=== PATIENT | female | born 1975 | race Caucasian/White ===

== ENCOUNTER 2019-09-09 19:18 | Emergency (ER) | payer OTHER, BC ==
[~2019-09-09] VITALS: Ht 170 cm; Wt 81.0 kg
--- OUTSIDE RECORDS SUMMARY | 2019-09-09 19:24 | XMS REPORT | Summary of Care ---
Author Author Shania Wayne M.D. Organization Unknown Address [address], [place] [id number] Phone Unavailable Care Team Providers Care Rn Anesthesiology Name Role Phone Dwayne Wayne M.D. Unavailable Unavailable Gretchen Fowler Unavailable Unavailable Unavailable Unavailable Reason for Visit * Health Issues Reviewed: * Myasthenia gravis Functional Status Name Dates Details Functional status health issues are not documented Status: Name Dates Details Cognitive status health issues are not d ocumented Status: Problems Name Dates Details Myasthenia gravis (358.00, G70.00) Status: Active Medications Name Dates Details Pyridostigmine [place] 60 MG Oral Tablet TAKE ONE TABLET BY MOUTH FOUR TIMES A DAY ABSOLUTELY MUST MAKE APPT Quantity: 136 Segundo Wayne M.D. Start : 24-Apr-2018 Active Diclofenac Sodium 50 MG Oral Tablet Delayed Release * Refills: 0 * Start : 10-Jul-2010 Active Multivitamins TABS * Refills: 0 * Start : 10-Jul-2010 Active Medications Administered Name Dates Details Medication Administration not documented Allergies and Adverse Reactions Name Dates Details Penicillins (Allergy) Status: Active Procedures Procedure Dates Details Procedures not documented Immunization Name Dates Details Immunizations not documented Social History Name Dates Details - Status: Name Dates Details Never smoker Vital Signs Date Test Result Details [id number] BP Systolic 116 mm[Hg] Status: Comments: Lo cation: RUE; Position: Sitting BP Diastolic 70 mm[Hg] Status: Comments: Lo cation: RUE; Position: Sitting Weight 196 lb Status: Heart Rate 88 /min Status: Comments: Qu ality: Regular O2 SAT 98 % Status: Results Date Description Value Details Results not documented Plan of Care Name Dates Details Planned Observations Planned Goals not documented Planned Encounters Appointment; Segundo Wayne M.D. On: 01-Oct-2019 14:00 Instructions Name Dates Details Instructions not documented Encounters Appointment; Segundo Wayne M.D. Encounter Diagnosis: Myasthenia gravis On: 25-Sep-2018 15:30
--- OUTSIDE RECORDS SUMMARY | 2019-09-09 19:24 | XMS REPORT | Continuity of Care Document ---
Author Author [facility] Organization [facility] Address [address] [place] [address] Phone Care Team Providers Care Watch Crystal Grinder Name Role Phone Dwayne Fowler PCP Rosemary Warren Rndphys Unavailable Dwayne Valladares Rndphys Unavailable Dwayne Fowler Attphys Allergies, Adverse Reactions, Alerts Allergen Type Severity Reaction Last Updated Verified Status Penicillins Allergy Unkn own February 21, 2019 Ye s Active amoxicillin Allergy February 21, 2019 Yes Active tetracycline Adverse Reaction Mild NAUSEA February 21, 2019 Yes Active Medications Medication Status Dose Units Route Sig Qty Days Start Date End Date Instructions Pyridostigmine [place] Discontinued 60 MG Oral 5 TIMES A DAY 0 September 19, 2009 10:26 am January 27, 2017 10:40am Acetaminophen Discontinued 500 MG Oral Four times daily 0 May 26, 2016 6:5 7pm May 29, 2016 4:27pm Famotidine Discontinued 20 MG Oral Twice a Day 10 May 29, 2016 4:27pm January 27, 2017 10:40am Ondansetron Discontinued 4 MG Oral Q4H 10 May 29, 2016 4:27pm January 27, 2017 10:40am Oseltamivir Cap Discontinued 75 MG Oral Daily 7 7 April 27, 2018 6:22pm May 04, 2018 12:02am Diclofenac Potassium Discontinued 50 MG Oral 3 times a day 60 September 20, 2018 1:0 2pm October 12, 2018 2:29pm Diclofenac Potassium Active 25 MG Oral 3 times a day February 21, 2019 5:46pm Multivitamin With Iron Active 1 TAB Oral Daily February 21, 2019 5:46pm Pyridostigmine [place] 60 MG Oral 5 times daily February 21, 2019 5:46pm Diclofenac Potassium Discontinued 50 MG Oral 3 times a day 60 October 12, 2018 2: 29pm December 15, 2018 10:47am Naproxen Sodium Discontinued 220 MG Oral Daily April 28, 2017 5:21pm September 19, 2018 8:48am Oseltamivir Cap Discontinued 75 MG Oral Twice a Day 10 5 April 28, 2017 5:40pm May 03, 2017 12:02am Problems Active Problems Medical Problem Onset Date Status Arthritis of sacroiliac joint of both sides Active Arthritis of both knees Active Patellofemoral arthritis of right knee Active Myasthenia gravis Acti ve Degenerative disc disease, lumbar Active Inactive/Resolved Problems Medical Problem Onset Date Status Needlestick injury accident with exposure to body flui d Resolved Procedures No procedure information available. Relevant Diagnostic Tests and/or Laboratory Data Laboratory Results Test Date/Time Result Interpretation Reference Range Result Comment Performing Site Alanine Aminotransferase (ALT/SGPT) February 21, 2019 6:48pm 44 U/L 1-35 Main Lab, [address] [place] [address] HIV Antigen/Antibody Combo Qual Dece mber 2018 6:48pm Negative NEGATIVE [facility], [address] [place] [address] Chemistry Comments February 21 6:48pm Performed at [facility] Test performed at: [facility], [address] [place] [address]. Moisture Tester Ro Granados MD. CLIA# [id number]. [facility], [address] [place] [address] Health Concerns Health Concerns may be documented in an alternate section. 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 , 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 Assessments No Assessments Information Available Family History Relationship Condition A ge at Onset Recorded Date/Time father Glioblastoma Unkn own grandmother Unknown Hypertension Unknown Unknown Cerebrovascular accident (CVA) Unknown grandfather Unknown Hypertension Unknown Unknown grandfather Unknown grandmother Unknown Functional Status No Functional Status information available Goals Acute Goals Physician Care Plan Problem: Needlestick with body fluid exposure Goal: Follow up with primary care provider Instructions: Take medications and follow care plan as discussed/written Immunizations No Immunization Information Available Mental Status No Mental Status Information Available Medical Equipment No Medical Equipment Information available Insurance Providers Guarantor Shania Barone Address [address] [facility] [address] Contact Info. Home Phone: Payer Policy Id Coverage Id Subscriber's Name Subscriber Id Effective Date Expiration Date [facility] [id number] Lj Carter Lizabeth [id number] Self Pay Self N/A Workers Compensation Shania Barone Plan of Treatment Future Tests Future scheduled test information is unavailable Pending Tests Pending diagnostic test information is unavailable Future Visits Future appointment information is unavailable Referrals to Other Providers Reason for Referral Referral Start Date Provider Provider Conta ct Information Provider Address G70.00 - Myasthenia gravis without (acute) exacerbation Gretchen Fowler Work Phone: [phone] [facility] [address] Future Procedures Future procedure information is unavailable Future Medications Future medication information is unavailable Patient Instructions Body Substance Exposure (ED) Social History Smoking Status Status Date of Observation Unknown if ever smoked February 7:44pm Observation Status Observation Response Johan e of Response alcohol intake current O ct2018 12:43pm alcohol intake frequency holidays/sp ecial occasions only December 15, 2018 12:43pm substance use type does not use December 15, 2018 12:43pm Assigned Sex Female Vital Signs Vital Reading Result Ref erence Range Collection Date/Time Height 67 [in_i] February 21, 2019 5:48pm Weight 86.80 kg February 21, 2019 5:48pm Body Temperature 98.4 [degF] 96.8-100.4 February 21, 2019 5:40pm Heart Rate 75 /min 60-100 February 21, 2019 8:45pm Respiratory rate 16 /min 10-24 February 21, 2019 8:45pm Oxygen saturation by Pulse oximetry 98 % 90- 100 February 21, 2019 8:45pm BP Systolic 111 mm[Hg] - 139 February 21, 2019 8:45pm BP Diastolic 59 mm[Hg] - 89 February 21, 2019 8:45pm Hospital Discharge Instructions Additional Instructions Follow as needed with your PCP.
--- OUTSIDE RECORDS SUMMARY | 2019-09-09 19:24 | XMS REPORT ---
Author Author Shania Hoang Organization [employer] Address Unknown Phone Unavailable Care Team Providers Care Instructional Aide Name Role Phone Steven Hoang Unavailable Allergies No Known Allergies Problems Problem Type Condition Code Onset Dates Condition Statu s Problem Encounter for routine checking of intrau terine contraceptive device Z30.431 Active Medications Medication Code System Code Instructions Start Date End Date Status Dosage Terazol 7 [facility] [address]-11 0.4 % Vaginal Once a day July 13July 21, 2015 1 application at bedtime Results No Known Results Summary Purpose [employer] Submission
--- OUTSIDE RECORDS SUMMARY | 2019-09-09 19:24 | XMS REPORT | Continuity of Care Document ---
Author Author [facility] Organization [facility] Address [address] [place] [address] Phone Care Team Providers Care Credit Balance Specialist Name Role Phone Dwayne Fowler PCP Rosemary Warren Rndphys Unavailable Dwayne Valladares Rndphys Unavailable Allergies, Adverse Reactions, Alerts Allergen Type Severity Reaction Last Updated Verified Status Penicillins Allergy Unkn own February 21, 2019 Ye s Active amoxicillin Allergy February 21, 2019 Yes Active tetracycline Adverse Reaction Mild NAUSEA February 21, 2019 Yes Active Medications Medication Status Dose Units Route Sig Qty Days Start Date End Date Instructions Pyridostigmine [place] Discontinued 60 MG Oral 5 TIMES A [...] 2019 6:48pm 44 U/L 1-35 Main Lab, [address] [place] [address] HIV Antigen/Antibody Combo Qual Dece mber 2018 6:48pm Negative NEGATIVE [facility], [address] [place] [address] Chemistry Comments February 21 6:48pm Performed at [facility] Test performed at: [facility], [address] [place] [address]. Cane Splicer Ro Granados MD. CLIA# [id number]. [facility], [address] [place] [address] Health Concerns Health Concerns may be documented in an alternate section. Chief Complaint and Reason for Visit Chief Complaint Finger stick at work Encounters Encounter Location(s) Ar rival/Admit Date Discharge/Depart Date Provider(s) Departed Physician/Provider Office Visit [facility] December 15, 2018 10:32am December 15, 2018 11:39am Gretchen Fowler APRN Departed Emergency [facility] nter-Emergency Department February 21, 2019 5:18pm February 21, 2019 8:45pm null Assessments No Assessments Information Available Family History [...] Providers Guarantor Shania Barone Address [address] [facility] [address] Contact Info. Home Phone: Payer Policy Id Coverage Id Subscriber's Name Subscriber Id Effective Date Expiration Date [facility] [id number] Lj Carter Gallitoranjana [id number] Self Pay Self N/A Workers Compensation Shania Barone Plan of Treatment Future Tests Future scheduled test information is unavailable Pending Tests Pending diagnostic test information is unavailable Future Visits Future appointment information is unavailable Referrals to Other Providers Reason for Referral Referral Start Date Provider Provider Conta ct Information Provider Address Gretchen Fowler Work Phone: [address] [facility] [address] Future Procedures Future procedure information is unavailable Future Medications Future medication information is unavailable Patient Instructions Body Substance Exposure (ED) Social History Smoking Status Status Date of Observation Unknown if ever smoked February 7:44pm Observation Status Observation Response Johan e of Response alcohol intake current O ctober 2018 12:43pm alcohol intake frequency holidays/sp ecial occasions [...] 8:45pm BP Diastolic 59 mm[Hg] - 89 Patricio 11th, 2019 8:45pm Hospital Discharge Instructions Additional Instructions Follow as needed with your PCP.
--- OUTSIDE RECORDS SUMMARY | 2019-09-09 19:24 | XMS REPORT | Continuity of Care Document ---
Author Author [facility] Organization [facility] Address [address] [place] [address] Phone Care Team Providers Care Employee Benefits Coordinator Name Role Phone Dwayne Fowler PCP Rosemary [...] Days Start Date End Date Instructions Pyridostigmine [place] Discontinued 60 MG Oral 5 TIMES A [...] 2019 6:48pm 44 U/L 1-35 Main Lab, [address] [place] [address] HIV Antigen/Antibody Combo Qual Dece mber 2018 6:48pm Negative NEGATIVE [facility], [address] [place] [address] Chemistry Comments February 21 6:48pm Performed at [facility] Test performed at: [facility], [address] [place] [address]. Maintenance Representative Ro Granados MD. CLIA# [id number]. [facility], [address] [place] [address] Health Concerns Health Concerns may be documented in an alternate section. Chief Complaint and Reason for Visit Chief Complaint Finger stick at work Encounters Encounter Location(s) Ar rival/Admit Date Discharge/Depart Date Provider(s) Departed Physician/Provider Office Visit [facility] December 15, 2018 10:32am December 15, 2018 11:39am Gretchen Fowler APRN Departed Emergency [facility] Ambulatory-Emergency Department February 21, 2019 5:18pm February 21, 2019 8:45pm null Registered Inpatient [facility] Ambulatory-Non Visit AMB Hospitalist March 05, 2019 8:42am Gretchen A Regier , MANAGER GENERAL Assessments No Assessments Information Available Family History [...] Providers Guarantor Shania Barone Address [address] [facility] [address] Contact Info. Home Phone: Payer Policy Id Coverage Id Subscriber's Name Subscriber Id Effective Date Expiration Date [facility] [id number] Lj Carter Lizabeth [id number] Self Pay Self N/A Workers Compensation Shania [...] exacerbation Gretchen Fowler Work Phone: [address] [facility] [address] Future Procedures Future procedure information is unavailable [...]
--- OUTSIDE RECORDS SUMMARY | 2019-09-09 19:24 | XMS REPORT ---
Author Author Shania Hoang Organization [facility] Address [address] [place], [place] [address] Care Team Providers Care Lining Inserter Name Role Phone Steven Hoang Unavailable PROBLEMS Type Condition ICD9-CM Code [id number] Code Onset Dates Condition S tatus SNOMED Code Problem Encounter for routine checking of intrauterine c ontraceptive device Z30.431 Active [id number] Assessment Encounter for routine checking of intrau terine contraceptive device Z30.431 July, Active [id number] ALLERGIES Substance Reaction Event Type Date Status Tetracycline HCl stomach upset Drug Allergy July, Active Penicillin V Potassium hives Drug Allergy July, Activ e Hydrocodone-Acetaminophen itching Drug Allergy July, Ac tive Erythromycin stomach upset Drug Allergy July, Active SOCIAL HISTORY No smoking Hx information available PLAN OF CARE VITAL SIGNS Height 5 ft 6 in in 2015-07-25 Weight 185 lbs 2015-07-25 BMI 29.86 kg/m2 2015-07-25 Blood pressure systolic 100 mm Hg 2015-07-25 Blood pressure diastolic 62 mm Hg 2015-07-25 MEDICATIONS Medication Instructions Dosage Frequency Start Date End Date Duration S tatus Diclofenac Sodium 100 MG Orally Once a day 1 tablet 24h Active Mirena 20 MCG/24HR Intrauterine every 5 years as directed Jun, as needed Active Mestinon 60 MG Orally five times a day as needed 1 Tablet Active Tylenol Extra Strength 500 MG Orally every 6 hrs 1 tablet as needed 6h Active Multivitamins Orally once a day 1 tablet 24h Active Ibuprofen 200 MG Orally every 6 hrs 4 tablet as needed 6h Active RESULTS No Results PROCEDURES Procedure Date Ordered Related Diagnosis Body Site Office Visit, Est Pt., Level 2 July 25, 2015 IMMUNIZATIONS No Known Immunizations
--- OUTSIDE RECORDS SUMMARY | 2019-09-09 19:24 | XMS REPORT | Continuity of Care Document ---
Author Author [facility] Organization [facility] Address [address] [place] [address] Phone Care Team Providers Care Meter/Relay Technician Name Role Phone Sissy Velasquez Attphys Dwayne Fowler Rndphys Allergies, Adverse Reactions, Alerts Allergen Type Severity Reaction Last Updated Verified Status Penicillins Allergy Unkn own May 04, 2019 Ye s Active amoxicillin Allergy May 04, 2019 Yes Active tetracycline Adverse Reaction Mild NAUSEA May 04, 2019 Yes Active Medications Medication Status Dose Units Route Sig Qty Days Start Date End Date Instructions Pyridostigmine [place] Discontinued 60 MG Oral 5 TIMES A [...] 2018 1:0 2pm October 12, 2018 2:29pm Pyridostigmine [place] Discontinued 60 MG Oral 3 times a day March 08, 2019 2:43pm March 09, 2019 4:31pm Diclofenac Potassium Active 25 MG Oral 3 times a day 90 March 08, 2019 2:44pm Pyridostigmine [place] Discontinued 60 MG Oral 3 times a day 90 March 09, 2019 4:31pm May 04, 2019 10:32am Diclofenac Potassium Discontinued 25 MG Oral 3 times a day February 21, 2019 5:46pm March 08, 2019 2:45pm Multivitamin With Iron Active 1 TAB Oral Daily February 21, 2019 5:46pm Pyridostigmine Discontinued 60 MG Oral 5 times daily February 21, 2019 5:46pm March 08, 2019 2:44pm Diclofenac Potassium Discontinued 50 MG Oral 3 times a day 60 October 12, 2018 2: 29pm December 15, 2018 10:47am Naproxen Sodium Discontinued 220 MG Oral Daily April 28, 2017 5:21pm September 19, 2018 8:48am Oseltamivir Cap Discontinued 75 MG Oral Twice a Day 10 April 28, 2017 5:40pm May 03, 2017 12:02am Pyridostigmine [place] Discontinued 60 MG Oral 5 times daily May 04, 2019 10:32am May 04, 2019 11:00am 3-5 x pe r day Pyridostigmine [place] Active 60 MG Oral Six times a day 180 May 04 0 11:00am Problems Active Problems Medical Problem Onset Date [...] available. Relevant Diagnostic Tests and/or Laboratory Data No known relevant diagnostic tests and/or laboratory data. Health Concerns Health Concerns may be documented in an alternate section. Chief Complaint and Reason for Visit Chief Complaint Myasthenia gravis Encounters Encounter Location(s) Ar rival/Admit Date Discharge/Depart Date Provider(s) Departed Emergency [facility] Ambulatory-Emergency Department February 21, 2019 5:18pm February 21, 2019 8:45pm null Departed Physician/Provider Office Visit [facility] May 04, 2019 10:22am May 04, 2019 11:59pm Sissy Velasquez MD Assessments No Assessments Information Available Family History Relationship Condition A ge at Onset Recorded Date/Time father Glioblastoma Unkn own grandmother Unknown Hypertension Unknown Unknown Cerebrovascular accident (CVA) Unknown grandfather Unknown Hypertension Unknown Unknown grandfather Unknown grandmother Unknown Functional Status No Functional Status information available Goals Goals may be documented in an alternate section. Immunizations No Immunization Information Available Mental Status No Mental Status Information Available Medical Equipment No Medical Equipment Information available Insurance Providers Guarantor Shania Barone Address [address] [facility] [address] Contact Info. Home Phone: Payer Policy Id Coverage Id Subscriber's Name Subscriber Id Effective Date Expiration Date [facility] [id number] Lj Carter Gallitoranjana [id number] Self Pay Self N/A Workers Compensation Shania Barone Plan of Treatment Patients presents with recurrent symptoms of double vision, ptosis, left more than right, fatigue, and arm weakness associated with antibody positive Myasthenia gravis. This has b een partially managed with Mestinon and she is reluctant trying steroid or any other immune th erapy at present time? She had a thymectomy which helped her symptoms for few months only. She also has symptoms of right CTS. Plan: 1- increase Mestinon to 60MG po up to 6 times a day for myasthenia symptoms. 2- consider adding low dosage of prednisone 10MG po qd for symptoms exacerbation 3- consider Imuran or Soliris if having worse progressing disease. 4- consider IVIG for Myasthenia crisis 5- consider having an EMG NCT if having worse right hand numbness and weakness. Future Tests Future scheduled test information is unavailable Pending Tests Pending diagnostic test information is unavailable Future Visits Future appointment information is unavailable Referrals to Other Providers Referral information is unavailable Future Procedures Future procedure information is unavailable Future Medications Future medication information is unavailable Patient Instructions Patient instructions are unavailable Social History Smoking Status Status Date of Observation Unknown if ever smoked April 11:18am Observation Status Observation Response Johan e of Response alcohol intake current F ebruary 2019 11:18am alcohol intake frequency holidays/sp ecial occasions only May 04, 2019 11:18am substance use type does not use May 04, 2019 11:18am Assigned Sex Female Vital Signs Vital Reading Result Ref erence Range Collection Date/Time Height 67 [in_i] May 04, 2019 10:32am Weight 88.45 kg May 04, 2019 10:32am Heart Rate 72 /min 60-100 May 04, 2019 10:32am BP Systolic 117 mm[Hg] - 139 May 04, 2019 10:32am BP Diastolic 70 mm[Hg] - 89 May 04, 2019 10:32am BMI (Body Mass Index) 30.5 kg/m2 May 04, 2019 10:32am
--- OUTSIDE RECORDS SUMMARY | 2019-09-09 19:24 | XMS REPORT | Continuity of Care Document ---
Author Author [facility] Organization [facility] Address [address] [place] [address] Phone Care Team Providers Care Electronic Parts Salesperson Name Role Phone Dwayne Fowler PCP Rosemary [...] Days Start Date End Date Instructions Pyridostigmine [place] Discontinued 60 MG Oral 5 TIMES A [...] 6:48pm 44 U/L 1-35 Main Lab, [address] [place] [address] HIV Antigen/Antibody Combo Qual Dece mber 2018 6:48pm Negative NEGATIVE [facility], [address] [place] [address] Chemistry Comments February 21 6:48pm Performed at [facility] lab Test performed at: [facility], [address] [place] [address]. Sow Farm Barn Technician Ro Granados MD. CLIA# [id number]. [facility], [address] [place] [address] Health Concerns Health Concerns may be documented in an alternate section. Chief Complaint and Reason for Visit Chief Complaint Finger stick at work Encounters Encounter Location(s) Ar rival/Admit Date Discharge/Depart Date Provider(s) Departed Physician/Provider Office Visit [facility] December 15, 2018 10:32am December 15, 2018 11:39am Gretchen Fowler APRN Departed Emergency [facility] nter-Emergency Department February 21, 2019 5:18pm February [...] Providers Guarantor Shania Barone Address [address] [facility] [address] Contact Info. Home Phone: Payer Policy Id Coverage Id Subscriber's Name Subscriber Id Effective Date Expiration Date [facility] [id number] Lj Carter Gallitoranjana [id number] Self Pay Self N/A Workers Compensation Shania Barone Plan of Treatment Future Tests Future scheduled test information is unavailable Pending Tests Pending diagnostic test information is unavailable Future Visits Future appointment information is unavailable Referrals to Other Providers Reason for Referral Referral Start Date Provider Provider Conta ct Information Provider Address Gretchen Fowler Work Phone: [phone] [facility] [address] Future Procedures Future procedure information is unavailable [...]
--- OUTSIDE RECORDS SUMMARY | 2019-09-09 19:24 | XMS REPORT ---
Author Author Shania Hoang Organization [facility] Address [address], [place] [address] Care Team Providers Care Food Services Coordinator Name Role Phone Steven Hoang Unavailable PROBLEMS Type Condition ICD9-CM Code DKE48-IA Code Onset Dates Condition S tatus SNOMED Code Problem Encounter for routine checking of intrauterine c ontraceptive device Z30.431 Active [id number] ALLERGIES No Information ENCOUNTERS Encounter Location Date Diagnosis [address] [id number] Apr, [address] [id number] July, Encounter for routine checking of intrauterine contraceptive device Z30.[address] [id number] Jun, [address] [id number] Jun, Encounter for gynecological examination without abnormal finding Z01.419 ; Encounter for removal and reinsertion of intrauterine contraceptive device Z30.433 ; Encounter for routine checking of intrauterine contraceptive device Z30.431 ; Encounter for screening mammogram for malignant neoplasm of breast Z12.31 and Encounter for screening for malignant neoplasm of other sites Z12.[address] [id number] Apr, Well Woman Exam V72.31 ; IUS/IUD Management V25.42 and Mammogram, screening V76.[address] [id number] Mar, [facility] Woman Exam V72.31 ; IUS/IUD Management V25.42 ; Pelvic pain 625.9 and Dyspareunia [address] [id number] July, [address] [id number] [facility] [id number] Mar, [facility] [id number] July, Well Woman Exam V72.31 ; IUS/IUD Management V25.42 and Postop V67.[address] [id number] July, [facility] [id number] Jun, Pelvic pain 625.9 and Abdominal pain, right lower quadrant 789.[address] [id number] Jun, [facility] Rodrigo[address] [id number] Jun, Pelvic pain 625.[address] [id number] Jun, [facility] Rodrigo[address] [id number] Jun, Pelvic pain 625.[address] [id number] Jun, [facility] Rodrigo[address] [id number] Jun, Pelvic pain 625.[address] [id number] Jun, [address] [id number] Jun, IMMUNIZATIONS No Known Immunizations SOCIAL HISTORY Never Assessed REASON FOR VISIT No-Show/WWE PLAN OF CARE VITAL SIGNS MEDICATIONS Unknown Medications RESULTS No Results PROCEDURES No Known procedures INSTRUCTIONS MEDICATIONS ADMINISTERED No Known Medications MEDICAL (GENERAL) HISTORY Type Description Date Medical History myasthenia gravis Surgical History cryotherapy Surgical History tab 1990 Surgical History arthroscopic knee surgery, right knee x2 , left knee x1 2009 Surgical History cholecystectomy 1999 Surgical History laparoscopy, operative w/ fu lguration of lesions - Rt paratubal cyst by Dr. Hoang 07/09/2011 Surgical History laparoscopic appendectomy by Dr. Vicente 07/09/2011
--- OUTSIDE RECORDS SUMMARY | 2019-09-09 19:24 | XMS REPORT | Continuity of Care Document ---
Author Author [facility] Organization [facility] Address [address] [place] [address] Phone Care Team Providers Care Patient Care Representative Name Role Phone Sissy Velasquez Attphys Dwayne Fowler Rndphys Allergies, Adverse Reactions, Alerts Allergen Type Severity Reaction Last Updated Verified Status Penicillins Allergy Unkn own May 04, 2019 Ye s Active amoxicillin Allergy May 04, 2019 Yes Active tetracycline Adverse Reaction Mild NAUSEA May 04, 2019 Yes Active Medications Medication Status Dose Units Route Sig Qty Days Start Date End Date Instructions Pyridostigmine [place] Discontinued 60 MG Oral 5 TIMES A [...] 1:0 2pm October 12, 2018 2:29pm Pyridostigmine [place] Discontinued 60 MG Oral 3 times a day March 08, 2019 2:43pm March 09, 2019 4:31pm Diclofenac Potassium Active 25 MG Oral 3 times a day 90 March 08, 2019 2:44pm Pyridostigmine [place] Discontinued 60 MG Oral 3 times a [...] 2017 5:40pm May 03, 2017 12:02am Pyridostigmine [place] Discontinued 60 MG Oral 5 times daily May 04, 2019 10:32am May 04, 2019 11:00am 3-5 x pe r day Pyridostigmine [place] Active 60 MG Oral Six times a [...] rival/Admit Date Discharge/Depart Date Provider(s) Departed Emergency [facility] Ambulatory[facility]Emergency Department February 21, 2019 5:18pm February 21, 2019 8:45pm null Departed Physician/Provider Office Visit [facility] May 04, 2019 10:22am [...] Providers Guarantor Shania Barone Address [address] [facility] [address] Contact Info. Home Phone: Payer Policy Id Coverage Id Subscriber's Name Subscriber Id Effective Date Expiration Date [facility] [id number] Lj Carter Gallitoranjana [id number] Self Pay Self N/A Workers Compensation Shania [...]
--- OUTSIDE RECORDS SUMMARY | 2019-09-09 19:24 | XMS REPORT | Continuity of Care Document ---
Author Author [facility] Organization [facility] Address [address] [place] [address] Phone Care Team Providers Care Child Welfare Caseworker Name Role Phone Dwayne Fowler PCP Rosemary [...] Days Start Date End Date Instructions Pyridostigmine [place] Discontinued 60 MG Oral 5 TIMES A [...] 2019 6:48pm 44 U/L 1-35 Main Lab, [address] [place] [address] HIV Antigen/Antibody Combo Qual Dece mber 2018 6:48pm Negative NEGATIVE [facility], [address] [place] [address] Chemistry Comments February 21 6:48pm Performed at [facility] Test performed at: [facility], [address] [place] [address]. Coding Technician Ro Granados MD. CLIA# [id number]. [facility], [address] [place] [address] Health Concerns Health Concerns may be documented in an alternate section. Chief Complaint and Reason for Visit Chief Complaint Finger stick at work Encounters Encounter Location(s) Ar rival/Admit Date Discharge/Depart Date Provider(s) Departed Physician/Provider Office Visit [facility] December 15, 2018 10:32am December 15, 2018 11:39am Gretchen Fowler APRN Departed Emergency [facility] nter-Emergency Department February 21, 2019 5:18pm February [...] Providers Guarantor Shania Barone Address [address] [facility] [address] Contact Info. Home Phone: Payer Policy Id Coverage Id Subscriber's Name Subscriber Id Effective Date Expiration Date [facility] [id number] Lj Carter Gallitornajana [id number] Self Pay Self N/A Workers Compensation Shania Barone Plan of Treatment Future Tests Future scheduled test information is unavailable Pending Tests Pending diagnostic test information is unavailable Future Visits Future appointment information is unavailable Referrals to Other Providers Reason for Referral Referral Start Date Provider Provider Conta ct Information Provider Address Gretchen Fowler Work Phone: [address] [facility] [address] Future Procedures Future procedure information is unavailable [...]
--- OUTSIDE RECORDS SUMMARY | 2019-09-09 19:25 | XMS REPORT | Continuity of Care Document ---
Author Author [facility] Organization [facility] Address [address] [place] [address] Phone Care Team Providers Care Tomato Grader Name Role Phone Dwayne Fowler PCP Rosemary [...] Days Start Date End Date Instructions Pyridostigmine [place] Discontinued 60 MG Oral 5 TIMES A [...] 6:48pm 44 U/L 1-35 Main Lab, [address] [place] [address] HIV Antigen/Antibody Combo Qual Dece mber 2018 6:48pm Negative NEGATIVE [facility], [address] [place] [address] Chemistry Comments February 21 6:48pm Performed at [facility] lab Test performed at: Laboratory, [address] [place] [address]. Membership Solicitor Ro Granados MD. CLIA# [id number]. [facility], [address] [place] [address] Health Concerns Health Concerns may be documented in an alternate section. Chief Complaint and Reason for Visit Chief Complaint Finger stick at work Encounters Encounter Location(s) Ar rival/Admit Date Discharge/Depart Date Provider(s) Departed Physician/Provider Office Visit -[facility] December 15, 2018 10:32am December 15, 2018 11:39am Gretchen Fowler APRN Departed Emergency [facility] nter-Emergency Department February 21, 2019 5:18pm [...] Providers Guarantor Shania Barone Address [address] [facility] [address] Contact Info. Home Phone: Payer Policy Id Coverage Id Subscriber's Name Subscriber Id Effective Date Expiration Date [facility] [id number] Lj Carter Gallitoranjana [id number] Self Pay Self N/A Workers Compensation Shania Barone Plan of Treatment Future Tests Future scheduled test information is unavailable Pending Tests Pending diagnostic test information is unavailable Future Visits Future appointment information is unavailable Referrals to Other Providers Reason for Referral Referral Start Date Provider Provider Conta ct Information Provider Address Gretchen Fowler Work Phone: [address] [facility] [address] Future Procedures Future procedure information is unavailable [...]
--- OUTSIDE RECORDS SUMMARY | 2019-09-09 19:25 | XMS REPORT | Continuity of Care Document ---
Author Author [facility] Organization [facility] Address [address] [place] [address] Phone Care Team Providers Care Rug Inspector Name Role Phone Raul Pringle Attphys Raul Pringle Rndphys Dwayne Fowler PCP Allergies, Adverse Reactions, Alerts Allergen Type Severity Reaction Last Updated Verified Status Penicillins Allergy Unknown Yes Active tetracycline Adverse Reaction Mild NAUSEA Yes Active Medications Medication Status Dose Units Route Sig Qty Days Start Date End Date Instructions Pyridostigmine [place] Active 60 MG Oral 5 TIMES A DAY 0 January 27, 2017 10:40am Diclofenac Potassium Active 50 MG Oral 3 times a day 60 October 12, 2018 2:29pm Multivit With Calcium,Iron,Min Active 1 TAB Oral Daily April 28, 2017 5:21pm Problems Active Problems Medical Problem Onset Date Status 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 Relevant Diagnostic Tests and/or Laboratory Data Laboratory Results Test Date/Time Result Interpretation Reference Range Result Co mment Performing Site Blood Urea Nitrogen October 11, 2018 9:43am 15.0 MG/DL 7-17 Main Lab, [address] [place] [address] Lactate Dehydrogenase October 11, 2018 9:43am 389 U/L 31 3-618 Test performed at: [facility], [address] [place] [address]. Chauffeur Airport Limousine Ro Granados MD. DAVIDIA# [id number]. Main Lab, [address] [place] [address] Health Concerns No known health concerns documented Chief Complaint and Reason for Visit Chief Complaint Re-ck meds Encounters Encounter Location(s) Arrival/Admit Date Discharge/Depart Date Provider(s) Departed Physician/Provider Office Visit [facility] October 11, 2018 9:10am October 11, 2018 9:43am Sabas Pringle MD Assessments No Assessments Information Available Family History Relationship Condition Age at Onset Recorded Date/Ti me father Glioblastoma Unknown grandmother Unknown Hypertension Unknown Unknown Cerebrovascular accident (CVA) Unknown grandfather Unknown Hypertension Unknown Unknown grandfather Unknown grandmother Unknown Functional Status No Functional Status information available Goals No Goals Information Available Immunizations No Immunization Information Available Mental Status No Mental Status Information Available Medical Equipment No Medical Equipment Information available Insurance Providers Guarantor Shania Barone Address [address] [facility] [address] Contact Info. Home Phone: Payer Policy Id Coverage Id Subscriber's Name Subscriber Id Effect phong Date Expiration Date [facility] [id number] Self Pay Self N/A Plan of Treatment check lab to see if can continue diclofenac clinic visit with Dr Moran Future Tests Future scheduled test information is unavailable Pending Tests Pending diagnostic test information is unavailable Future Visits Future appointment information is unavailable Referrals to Other Providers Referral information is unavailable Future Procedures Future procedure information is unavailable Future Medications Future medication information is unavailable Patient Instructions Patient instructions are unavailable Social History Assigned Sex Female Vital Signs Vital Reading Result Collection Date/Time Height 67 [in_i] October 11, 2018 9:12 am
--- OUTSIDE RECORDS SUMMARY | 2019-09-09 19:25 | XMS REPORT | Continuity of Care Document ---
Author Author [facility] Organization [facility] Address [address] [place] [address] Phone Care Team Providers Care Mail Handler Name Role Phone Tera Moran Attphys Dwayne Fowler PCP Tera Delacruz Rndphys Allergies, Adverse Reactions, Alerts Allergen Type Severity Reaction Last Updated Verified Status Penicillins Allergy Unknown Yes Active tetracycline Adverse Reaction Mild NAUSEA Yes Active Medications Medication Status Dose Units Route Sig Qty Days Start Date End Date Instructions Pyridostigmine [place] Active 60 MG Oral 5 TIMES A [...] diagnostic tests and/or laboratory data. Health Concerns No known health concerns documented Chief Complaint and Reason for Visit Chief Complaint Mario Alberto Knee Encounters Encounter Location(s) Arrival/Admit Date Discharge/Depart Date Provider(s) Departed Physician/Provider Office Visit [facility] November 06, 2018 10:22am November 06, 2018 11:59pm Segundo Moran MD Assessments No Assessments Information Available Family [...] Providers Guarantor Shania Barone Address [address] [facility] [address] Contact Info. Home Phone: Payer Policy Id Coverage Id Subscriber's Name Subscriber Id Effect phong Date Expiration Date [facility] [id number] Self Pay Self N/A Social History Assigned Sex Female Vital Signs Vital Reading Result Collection Date/Time Height 67 [in_i] November 06, 2018 10 :26am Weight 85.27 kg November 06, 2018 10 :26am BMI (Body Mass Index) 29.4 kg/m2 November 06, 2018 10:26am
--- OUTSIDE RECORDS SUMMARY | 2019-09-09 19:25 | XMS REPORT | Continuity of Care Document ---
Author Author [facility] Organization [facility] Address [address] [place] [address] Phone Care Team Providers Care Mortician Supplies Sales Representative Name Role Phone Dwayne Fowler PCP Dwayne Fowler Attphys Dwayne Fowler Rndphys Allergies, Adverse Reactions, Alerts Allergen Type Severity Reaction Last Updated Verified Status Penicillins Allergy Unknown Yes Active tetracycline Adverse Reaction Mild NAUSEA Yes Active Medications Medication Status Dose Units Route Sig Qty Days Start Date End Date Instructions Pyridostigmine [place] Active 60 MG Oral 5 TIMES A DAY 0 January 27, 2017 10:40am Diclofenac Potassium Active 25 MG Oral 3 times a day 90 December 15, 2018 11:26am Multivit With Calcium,Iron,Min Active 1 TAB Oral [...] Complaint and Reason for Visit Chief Complaint FU med ck Encounters Encounter Location(s) Arrival/Admit Date Discharge/Depart Date Provider(s) Departed Physician/Provider Office Visit [facility] December 15, 2018 10:32am December 15, 2018 11:39am Gretchen Fowler APRN Assessments No Assessments Information Available Family History [...] Providers Guarantor Shania Barone Address [address] [facility] [address] Contact Info. Home Phone: Payer Policy Id Coverage Id Subscriber's Name Subscriber Id Effect phong Date Expiration Date [facility] [id number] Self Pay Self N/A Social History Assigned Sex Female Vital Signs Vital Reading Result Reference Range Collection Date/ Time Height 67 [in_i] December 15 10:44am Weight 85.72 kg December 15 10:44am Body Temperature 98.5 [degF] 96.8-100.4 December 15 10:44am Heart Rate 73 /min 60-100 December 15 9 10:44am Oxygen saturation by Pulse oximetry 97 % 90-100 December 15, 2018 10:44am BP Systolic 100 mm[Hg] -139 December 15 9 10:44am BP Diastolic 70 mm[Hg] -89 December 15 9 10:44am BMI (Body Mass Index) 29.6 kg/m2 December 10:44am
--- OUTSIDE RECORDS SUMMARY | 2019-09-09 19:25 | XMS REPORT | Continuity of Care Document ---
Author Author [facility] Organization [facility] Address [address] [place] [address] Phone Care Team Providers Care Kiln Head House Operator Name Role Phone Dwayne Fowler PCP Dwayne Fowler Attphys Dwayne Fowler Rndphys Allergies, Adverse Reactions, Alerts Allergen Type Severity Reaction Last Updated Verified Status Penicillins Allergy Unknown Yes Active tetracycline Adverse Reaction Mild NAUSEA Yes Active Medications Medication Status Dose Units Route Sig Qty Days Start Date End Date Instructions Pyridostigmine [place] Active 60 MG Oral 5 TIMES A [...] Departed Physician/Provider Office Visit [facility] December 15, 2018 10:32am December 15, [...] Providers Guarantor Shania Barone Address [address] [facility] [address] Contact Info. Home Phone: Payer Policy Id Coverage Id Subscriber's Name Subscriber Id Effect phong Date Expiration Date [facility] [id number] Self Pay Self N/A Social History Assigned [...]
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
--- OUTSIDE RECORDS SUMMARY | 2019-09-09 19:25 | XMS REPORT | Continuity of Care Document ---
Author Author [facility] Organization [facility] Address [address] [place] [address] Phone Care Team Providers Care Improvement Coordinator Name Role Phone Tera Moran Attphys Dwayne Fowler PCP Tera Delacruz Rndphys Allergies, Adverse Reactions, Alerts Allergen Type Severity Reaction Last Updated Verified Status Penicillins Allergy Unknown Yes Active tetracycline Adverse Reaction Mild NAUSEA Yes Active Medications Medication Status Dose Units Route Sig Qty Days Start Date End Date Instructions Pyridostigmine [place] Active 60 MG Oral 5 TIMES A [...] Departed Physician/Provider Office Visit Giovanny garc[facility] November 06, 2018 [...] Address [address] [facility] [address] Contact Info. Home Phone: Payer Policy Id Coverage Id Subscriber's Name Subscriber Id Effect phong Date Expiration Date [facility] [id number] Self Pay Self N/A Social History Assigned Sex Female Vital Signs Vital Reading Result Collection Date/Time Height 67 [in_i] November 06, 2018 10 :26am Weight 85.27 kg November 06, 2018 10 :26am BMI (Body Mass Index) 29.4 kg/m2 November 06, 2018 10:26am
--- OUTSIDE RECORDS SUMMARY | 2019-09-09 19:25 | XMS REPORT | Continuity of Care Document ---
Author Author [facility] Organization [facility] Address [address] [place] [id number] Phone Care Team Providers Care Pipe Layer Helper Name Role Phone Raul Pringle Attphys Raul Pringle Rndphys Dwayne Fowler PCP Tera Moran Attphys Tera Delacruz Rndphys Allergies, Adverse Reactions, Alerts Allergen Type Severity Reaction Last Updated Verified Status Penicillins Allergy Unknown Yes Active tetracycline Adverse Reaction Mild NAUSEA Yes Active Medications Medication Status Dose Units Route Sig Qty Days Start Date End Date Instructions Pyridostigmine [place] Active 60 MG Oral 5 TIMES A [...] 2018 9:43am 15.0 MG/DL 7-17 Main Lab, [address] [place] [address] Lactate Dehydrogenase October 11, 2018 9:43am 389 U/L 31 3-618 Test performed at: [facility], [address] [place] [address]. Carrot Harvester Ro Granados MD. CLIA# [id number]. Main Lab, [address] [place] [address] Health Concerns No known health concerns documented Chief Complaint and Reason for Visit Chief Complaint Re-ck meds Mario Alberto Knee Encounters Encounter Location(s) Arrival/Admit Date Discharge/Depart Date Provider(s) Departed Physician/Provider Office Visit Giovanny garcía [facility] October 11, 2018 9:10am October 11, 2018 9:43am Sabas Pringle MD Departed Physician/Provider Office Visit Giovanny garcía [facility] November 06, 2018 [...] Equipment Information available Insurance Providers Guarantor Shania García [facility] Address [address] [place] [address] Contact Info. Home Phone: Payer Policy Id Coverage Id Subscriber's Name Subscriber Id Effect phong Date Expiration Date [facility] [id number] Self Pay Self N/A Plan of Treatment [...] 67 [in_i] October 11, 2018 9:12 am Height 67 [in_i] November 06, 2018 10 :26am Weight 85.27 kg November 06, 2018 10 :26am BMI (Body Mass Index) 29.4 kg/m2 November 06, 2018 10:26am
--- OUTSIDE RECORDS SUMMARY | 2019-09-09 19:25 | XMS REPORT | Continuity of Care Document ---
Author Author [facility] Organization [facility] Address [address] [place] [phone] Phone Care Team Providers Care Principal Clerk Name Role Phone Raul Pringle Attphys Raul Pringle Rndphys Dwayne Fowler PCP Allergies, Adverse Reactions, Alerts Allergen Type Severity Reaction Last Updated Verified Status Penicillins Allergy Unknown Yes Active tetracycline Adverse Reaction Mild NAUSEA Yes Active Medications Medication Status Dose Units Route Sig Qty Days Start Date End Date Instructions Pyridostigmine [place] Active 60 MG Oral 5 TIMES A [...] 2018 9:43am 15.0 MG/DL 7-17 Main Lab, [address] [place] [address] Lactate Dehydrogenase October 11, 2018 9:43am 389 U/L 31 3-618 Test performed at: [facility], [address] [place] [address]. Tenoner Operator Ro Granados MD. DAVIDIA# [id number]. Main Lab, [address] [place] [address] Health Concerns No known health concerns documented Chief Complaint and Reason for Visit Chief Complaint Re-ck meds Encounters Encounter Location(s) Arrival/Admit Date Discharge/Depart Date Provider(s) Departed Physician/Provider Office Visit Giovanny garcía [facility] [facility] October 11, 2018 [...] Providers Guarantor Shania Barone Address [address] [facility] [address] Contact Info. Home Phone: Payer Policy Id Coverage Id Subscriber's Name Subscriber Id Effect phong Date Expiration Date [facility] [id number] Self Pay Self N/A Plan of Treatment [...]
--- OUTSIDE RECORDS SUMMARY | 2019-09-09 19:25 | XMS REPORT | Continuity of Care Document ---
Author Author [facility] Organization [facility] Address [address] [place] [address] Phone Care Team Providers Care Epic Analyst Name Role Phone Dwayne Fowler PCP Rosemary [...] Days Start Date End Date Instructions Pyridostigmine [place] Discontinued 60 MG Oral 5 TIMES A [...] February 21, 2019 6:48pm 44 U/L 1-35 [facility], [address] [place] [address] HIV Antigen/Antibody Combo Qual Dece mber 2018 6:48pm Negative NEGATIVE [facility], [address] [place] [address] Chemistry Comments February 21 6:48pm [place]formed at [facility] Test performed at: [facility], [address] [place] [address]. Administrative Staff Supervisor Ro Granados MD. IA# [id number]. [facility], [address] [place] [address] Health Concerns Health Concerns may be documented in an alternate section. Chief Complaint and Reason for Visit Chief Complaint Finger stick at work Encounters Encounter Location(s) [place] [facility]/Admit Date Discharge/Depart Date Provider(s) Departed Physician/Provider Office Visit [facility] December 15, 2018 10:32am December 15, 2018 11:39am Gretchen Fowler APRN Departed Emergency [facility] nter-Emergency Department February 21, 2019 [...] Providers Guarantor Shania Barone Address [address] [facility] [address] Contact Info. Home Phone: Payer Policy Id Coverage Id Subscriber's Name Subscriber Id Effective Date Expiration Date [facility] [id number] Self Pay Self N/A Workers Compensation Shania Barone Plan of Treatment Future Tests Future scheduled test information is unavailable Pending Tests Pending diagnostic test information is unavailable Future Visits Future appointment information is unavailable Referrals to Other Providers Reason for Referral Referral Start Date Provider Provider Della ct Information Provider Address Gretchen Fowler Work Phone: [address] [facility] [address] Future Procedures Future procedure information is unavailable [...]
--- OUTSIDE RECORDS SUMMARY | 2019-09-09 19:25 | XMS REPORT | Continuity of Care Document ---
Author Author [facility] Organization [facility] Address Unknown Phone Unavailable Support Name Relationship Address Phone RAMOS KING MD Caregiver [address] [place] [address] [place] [address] Unavailable ALISTAIR SAHU MD Caregiver [address] [place] [address] [employer] [place] [address] Unavailable JULYLYLA DO Caregiver [address] [place], [place] [address] [place] [address] Unavailable MT SERVIN APRN Caregiver [address] [place] [address] Unavailable LAURI BARONE Next Of Kin [address] [place], [place] [id number] Insurance Providers Guarantor Dylon Barone Address [address] [id number] Email [email or web address] Payer [facility] Policy Number [id number] Subscriber's Name GallitoLauri chilel Relationship 01 Spouse Group Number [id number] Advance Directives Directive Response Recorded Date/Time Advanced Directives Type None 05/26/16 6:48pm Ordered Resuscitation Status Full Code 05/26/16 8:32pm Resuscitation Documents on File No 05/26/16 9:30pm DPOA for Healthcare Only No 05/26/16 9:30pm Living Will No 05/26/16 9:30pm Problems Active Problems Medical Problem Onset Date Status Abdominal pain Unknown Acute Acute pancreatitis Unknown Resolved Myasthenia gravis Unknown Chronic Nausea Unknown Acute Obesity (BMI 30.0-34.9) Unknown Chronic SIRS without acute organ dysfunction due to non-infectious p rocess Unknown Resolved Transaminitis Unknown Acute Surgical Problem Onset Date Status Hx of cholecystectomy Unknown Past Problems Medical Problem Onset Date Pancreatitis Unknown Medications Current Home Medications Medication Dose Units Route Directions Days Qty Instructio ns Start Date Famotidine 20 Mg Tablet 20 Mg Oral Twice A Day 10 T ablet 05/29/16 Ondansetron (Ondansetron Odt) 4 Mg Tab.rapdis 4 Mg Oral Every 4 Hours as needed for Nausea &/Or Vomiting 10 7 Pyridostigmine [place] (Mestinon) 60 Mg Tablet 60 Mg Oral 5 Times A Day 09/19/09 Past Home Medications Medication Directions Ordered Status Acetaminophen (Tylenol) 325 Mg Tablet, 500 Mg Oral Four Times Da theresa 05/26/16 Discontinued Social History Social History Problem Response Recorded Date/Time Onset Date Status Reason for Hospitalization acute pancreatitis, ulcers, trans aminitis 05/29/2016 4:42pm Not Applicable Not Applicable Hx Alcohol Use No 05/26/2016 8:11pm Not Applicable Not Ap plicable Has the pt used tobacco in the last 12 months No 9:33pm Not Applicable Not Applicable Query Response Start Date Stop Date Smoking Status Never smoker Hospital Discharge Instructions Instructions: Care Instructions: Reason for Hospitalization: acute pancreatitis, ulcers, transaminitis I was in the hospital because (patient own words): Horrible stomach cramps Discharge Diet: bland Discharge Activity: Light activity as tolerated Follow Up Appointments: Follow-up with Dr. Kessler or his PA Deirdre Servin Pending Lab / Results: Follow up w/ your PCP Wound/Incision Care: n/a Pain Scale Utilized to Educate Patient: 0-10 Pain Scale Pain Management/Treatment: n/a Expected Signs/Symptoms: Your appetite should slowly improve Notify Physician If: Return to the hospital if you have worsening abdominal pain, uncontrolled vomiting, fevers, lethargy, or jaundice of the skin or yellow discoloration of the eyes During Business Hours:: Please call the physician's office at Dr. Kessler's office After Business Hours:: Please call [phone] and have the lunch wagon operator page the physician. Condition at time of discharge: Good Plan of Care Discharge Date 05/29/16 4:56pm Disposition 01 DISCHARGED HOME, SELF-CAR E Instructions/Education Provided Pancreatitis (DC) Prescriptions See Medication Section Care Plan and Goals See Discharge Instructions S ection Functional Status Query Response Date Recorded Mobility Status Ambulatory May 29, 2016 4:42pm Assistive Devices None May 29, 2016 4:42pm Activity Limitations Weakness Fatigue Pain May 29, 2016 4:42pm Feeding Ability Independent May 29, 2016 4:42pm Toileting Ability Independent May 29, 2016 4:42pm Grooming Ability Independent May 29, 2016 4:42pm Dressing Ability Independent May 29, 2016 4:42pm Driving Ability Independent May 29, 2016 4:42pm Housework Ability Independent May 29, 2016 4:42pm Meal Preparation Ability Independent May 29, 2016 4:42pm Stair Climbing Ability Independent May 29, 2016 4:42pm Ability to complete ADL's impeded by No change May 29, 2016 4:42pm Cognitive/Perceptual Impairments None May 29, 2016 4:42pm Preferred Method of Learning Reading Listening May 26, 2016 9:54pm Allergies, Adverse Reactions, Alerts Allergen Type Severity Reaction Status Last Updated Penicillin Allergy Unknown Active 05/26/16 Tetracycline Adverse Reaction Mild NAUSEA Active Immunizations Query Response on File Recorded Date/Time Hx Influenza Vaccination N REFUSED 05/26/16 9:33pm Hx Pneumococcal Vaccination N REFUSED 05/26/16 9:3 3pm Hx Influenza Vaccination N REFUSED 05/26/16 9:33pm Vital Signs Acute Vital Signs Vital Response Date/Time Temperature (Fahrenheit) 98.3 deg F (96.8 - 99.1) 05/29/2016 3:14pm Temperature (Calculated Celsius) 36.28339 degrees C (36.0 - 37.3) 05/29/2016 3:14pm Pulse Rate (adult) 67 bpm (60 - 100) 05/29/2016 3:14pm Respiratory Rate 16 breaths/min (10 - 20) 05/29/2016 3:14 pm O2 Sat by Pulse Oximetry 100 % (90 - 100) 05/29/2016 3:14 pm Oxygen Delivery Method Room Air 05/29/2016 3:14pm Blood Pressure 103/69 mm Hg 05/29/2016 3:14pm Blood Pressure Source Automatic Cuff 05/29/2016 3:14 pm Height (Feet) 5 feet 05/28/2016 3:04pm Height (Inches) 7.00 inches 05/28/2016 3:04pm Weight (Kilograms) 91.500 kg 05/29/2016 7:52am Body Mass Index (BMI) 31.7 05/26/2016 9:27pm Results Laboratory Results Test Name Result Units Flags Reference Collection Date/Time Result Date/Time Comments White Blood Count 6.0 T/MM3 D 4.5-11.0 05/29/2016 4:36am 5:54am Red Blood Count 4.67 M/MM3 4.00-5.20 05/29/2016 4:36am 03/1 10/2016 5:54am Hemoglobin 14.8 GM/DL 12-16 05/29/2016 4:36am 05/29/2016 5:54am Hematocrit 43.7 % 36-46 05/29/2016 4:36am 05/29/2016 5:54am Mean Corpuscular Volume 93.6 UM3 80-100 05/29/2016 4:36a m 05/29/2016 5:54am Mean Corpuscular Hemoglobin 31.7 UUG 26-34 4:36am 05/29/2016 5:54am Mean Corpuscular Hemoglobin Concent 33.9 GM/DL 31-3 7 05/29/2016 4:36am 05/29/2016 5:54am RDW Standard Deviation 41.7 FL 36.9-50.2 05/29/2016 4:36 am 05/29/2016 5:54am Platelet Count 136 T/MM3 130-400 05/29/2016 4:36am 017 5:54am Mean Platelet Volume 13.7 UM3 H 9.4-12.4 05/29/2016 4:36am 05/29/2016 5:54am Neutrophils (%) (Auto) 70.6 % H 33-66 05/29/2016 4:36am 05/29/2016 5:54am Lymphocytes (%) (Auto) 19.0 % L 23-45 05/29/2016 4:36am 05/29/2016 5:54am Monocytes (%) (Auto) 8.2 % 0-9.0 05/29/2016 4:36am 0 05/29/2016 5:54am Eosinophils (%) (Auto) 1.8 % 0-4 05/29/2016 4:36am 05/29/2016 5:54am Basophils (%) (Auto) 0.2 % 0-2 05/29/2016 4:36am 0 05/29/2016 5:54am Immature Granulocyte % (Auto) 0.2 % 0.0-0.5 05/29/2016 4:36am 05/29/2016 5:54am Absolute Neutrophils (auto) 4.2 T/MM3 1.8-7.7 4:36am 05/29/2016 5:54am Absolute Lymphocytes (auto) 1.1 T/MM3 1-4.8 4:36am 05/29/2016 5:54am Absolute Monocytes (auto) 0.5 T/MM3 0-0.8 05/29/2016 4:3 6am 05/29/2016 5:54am Absolute Eosinophils (auto) 0.1 T/MM3 0-0.5 4:36am 05/29/2016 5:54am Absolute Basophils (auto) 0.0 T/MM3 0-0.2 05/29/2016 4:3 6am 05/29/2016 5:54am Absolute Immature Granulocyte (auto 0.01 T/MM3 0.00 -0.03 05/29/2016 4:36am 05/29/2016 5:54am Neutrophils % (Manual) 84.0 % H 33-66 05/26/2016 7:28pm 05/26/2016 7:58pm Band Neutrophils % 6.0 % 0-6 05/26/2016 7:28pm 7:58pm Lymphocytes % (Manual) 2.0 % L 23-45 05/26/2016 7:28pm 05/26/2016 7:58pm Monocytes % (Manual) 6.0 % 0-9.0 05/26/2016 7:28pm 0 05/26/2016 7:58pm Basophils % (Manual) 2.0 % 0-2 05/26/2016 7:28pm 0 05/26/2016 7:58pm Band Neutrophils # 0.8 T/MM3 05/26/2016 7:28pm 7:58pm Absolute Neutrophils (Manual) 10.6 T/MM3 H 1.8-7.7 05/26/2016 7:28pm 05/26/2016 7:58pm Lymphocytes # (Manual) 0.3 T/MM3 L 1-4.8 05/26/2016 7:28pm 05/26/2016 7:58pm Monocytes # (Manual) 0.8 T/MM3 0-0.8 05/26/2016 7:28pm 0 05/26/2016 7:58pm Basophils # (Manual) 0.3 T/MM3 H 0-0.2 05/26/2016 7:28pm 0 05/26/2016 7:58pm Red Cell Morphology Comment NORMAL 05/26/2016 7 :28pm 05/26/2016 7:58pm Icterus Index < 2 0-7 05/29/2016 4:36am 05/30/19 17 5:41am Chemistry Specimen Hemolysis < 15 0-25 05/29/2016 4:36am 05/29/2016 5:41am 0-25: Specimen Exhibited No Hemolysis. Turbidity < 20 0-20 05/29/2016 4:36am 05/29/2016 5 :41am Sodium Level 144 MEQ/L 134-144 05/29/2016 4:36am 7 5:41am Potassium Level 3.6 MEQ/L 3.6-5 05/29/2016 4:36am 2016 5:41am Chloride Level 107 MEQ/L 98-107 05/29/2016 4:36am 017 5:41am Carbon Dioxide Level 27 MEQ/L 22-30 05/29/2016 4:36am 0 05/29/2016 5:41am Anion Gap 10 MEQ/L 5-15 05/29/2016 4:36am 05/29/2016 5 :41am Blood Urea Nitrogen 5.0 MG/DL L 7-17 05/29/2016 4:36am 5:41am Creatinine 0.9 MG/DL 0.7-1.2 05/29/2016 4:36am 05/29/2016 5:41am BUN/Creatinine Ratio 6 RATIO 6-26 05/29/2016 4:36am 0 05/29/2016 5:41am Glomerular Filtration Rate Calc 68 05/30/19 17 4:36am 05/29/2016 5:41am Glucose Level 101 MG/DL 65-110 05/29/2016 4:36am 05/30/19 17 5:41am Calculated Osmolality 274 MOSM/KG 261-280 05/29/2016 4:36am 05/29/2016 5:41am Calcium Level 8.3 MG/DL D L 8.4-10.2 05/29/2016 4:36am 017 5:54am Total Bilirubin 0.90 MG/DL 0.20-1.30 05/29/2016 4:36am 05/12 5:41am Alkaline Phosphatase 170 U/L H 38-126 05/29/2016 4:36am 0 05/29/2016 5:41am Total Protein 6.4 G/DL 6.3-8.2 05/29/2016 4:36am 05/30/19 17 5:41am Albumin 3.7 G/DL 3.5-5.0 05/29/2016 4:36am 05/29/2016 5:4 1am Globulin 2.7 G/DL 2.4-3.6 05/29/2016 4:36am 05/29/2016 5: 41am Albumin/Globulin Ratio 1.4 RATIO 1.1-2.2 05/29/2016 4:36am 05/29/2016 5:41am Aspartate Amino Transf (AST/SGOT) 333 U/L D H 14-36 05/29/2016 4:36am 05/29/2016 5:54am Alanine Aminotransferase (ALT/SGPT) 710 U/L H 9-52 05/29/2016 4:36am 05/29/2016 5:41am Cholesterol Level 87 MG/DL L 132-199 05/27/2016 4:28am 05/12 5:40am Triglycerides Level 63 MG/DL 35-135 05/27/2016 4:28am 5:40am HDL Cholesterol Direct 32 MG/DL L 40-60 05/27/2016 4:28am 05/27/2016 5:40am LDL Cholesterol, Calculated 42.4 L 66-159 4:28am 05/27/2016 5:40am VLDL Cholesterol 12.6 MG/DL 0-28 05/27/2016 4:28am 05/27 5:40am Cholesterol/HDL Ratio 2.7 RATIO 0-4.0 05/27/2016 4:28am 05/27/2016 5:40am Lipase 220 U/L 23-300 05/28/2016 4:55am 05/28/2016 6:0 7am Urine Collection Type CLEANCATCH-MIDSTREAM 05/26/2016 7:21pm 05/26/2016 7:34pm Urine Color YELLOW YELLOW 05/26/2016 7:21pm 05/26/2016 7:34pm Urine Turbidity CLEAR CLEAR 05/26/2016 7:21pm 2016 7:34pm Urine Specific [place] >=1.030 H 1.015-1.025 05/26 7:21pm 05/26/2016 7:34pm Urine pH 5.5 5.0-8.0 05/26/2016 7:21pm 05/26/2016 7: 34pm Urine Leukocyte Esterase NEGATIVE NEGATIVE 05/26 7:21pm 05/26/2016 7:34pm Urine Nitrite NEGATIVE NEGATIVE 05/26/2016 7:21pm 2016 7:34pm Urine Protein TRACE A NEGATIVE 05/26/2016 7:21pm 017 7:34pm Urine Glucose (UA) NEGATIVE NEGATIVE 05/26/2016 7:21pm 0 05/26/2016 7:34pm Urine Ketones 1+ A NEGATIVE 05/26/2016 7:21pm 017 7:34pm Urine Urobilinogen 2.0 EU/DL NORMAL 05/26/2016 7:21pm 7:34pm Urine Bilirubin 1+ A NEGATIVE 05/26/2016 7:21pm 05/26 7:34pm Urine Blood NEGATIVE NEGATIVE 05/26/2016 7:21pm 05/27/19 17 7:34pm Urinalysis Comment MICROSCOPIC NOT IND. 05/26/2016 7:21pm 05/26/2016 7:34pm Mary Ellen-Lux Virus Interpretation - 2016 3:pm 05/28/2016 8:41pm . <0.91 = Negative . 0.91 - 1.09 = Equivocal . >1.09 = Positive Mary Ellen-Lux Virus Serology performed at [facility], [address] [place] [address] Tie Cutter Nicanor Cota DO Name: DYLON BARONE Unit #: [id number] : 1975 Sex: F DISCHARGE SUMMARY Admit Date: 05/26/16 Report #: [id number] General Date Date DATE: 05/29/16 TIME: 16:[address] Tatiana Felix Admitting Physician Ramos King MD Consulting Physician Admitting Diagnosis PANCREATITIS Discharge Diagnosis Mild acute pancreatitis Sirs without acute organ dysfunction Transaminitis Mild elevated bilirubin Nausea and vomiting Diarrhea Possible viral gastroenteritis Myasthenia gravis Laboratory Laboratory Tests Test 05/28/16 04:55 05/28/16 15:25 05/29/16 04:36 White Blood Count 4.0T/MM3 (4.5-11.0) 6.0T/MM3 (4.5-11.0) Red Blood Count 4.31M/MM3 (4.00-5.20) 4.67M/MM3 (4.00-5.20) Hemoglobin 13.8GM/DL (12-16) 14.8GM/DL (12-16) Hematocrit 40.8% (36-46) 43.7% (36-46) Mean Corpuscular Volume 94.7UM3 (80-100) 93.6UM3 (80-100) Mean Corpuscular Hemoglobin 32.0UUG (26-34) 31.7UUG (26-34) Mean Corpuscular Hemoglobin Concent 33.8GM/DL (31-37) 33.9GM/DL (31-37) RDW Standard Deviation 41.9FL (36.9-50.2) 41.7FL (36.9-50.2) Platelet Count 118T/MM3 (130-400) 136T/MM3 (130-400) Mean Platelet Volume 13.1UM3 (9.4-12.4) 13.7UM3 (9.4-12.4) Immature Granulocyte % (Auto) 0.0% (0.0-0.5) 0.2% (0.0-0.5) Neutrophils (%) (Auto) 58.2% (33-66) 70.6% (33-66) Lymphocytes (%) (Auto) 28.0% (23-45) 19.0% (23-45) Monocytes (%) (Auto) 11.5% (0-9.0) 8.2% (0-9.0) Eosinophils (%) (Auto) 2.0% (0-4) 1.8% (0-4) Basophils (%) (Auto) 0.3% (0-2) 0.2% (0-2) Absolute Immature Granulocyte (auto 0.00T/MM3 (0.00-0.03) 0.01T/MM3 (0.00-0.03) Absolute Neutrophils (auto) 2.3T/MM3 (1.8-7.7) 4.2T/MM3 (1.8-7.7) Absolute Lymphocytes (auto) 1.1T/MM3 (1-4.8) 1.1T/MM3 (1-4.8) Absolute Monocytes (auto) 0.5T/MM3 (0-0.8) 0.5T/MM3 (0-0.8) Absolute Eosinophils (auto) 0.1T/MM3 (0-0.5) 0.1T/MM3 (0-0.5) Absolute Basophils (auto) 0.0T/MM3 (0-0.2) 0.0T/MM3 (0-0.2) Turbidity < 20 (0-20) < 20 (0-20) Sodium Level 143MEQ/L (134-144) 144MEQ/L (134-144) Potassium Level 3.5MEQ/L (3.6-5) 3.6MEQ/L (3.6-5) Chloride Level 108MEQ/L (98-107) 107MEQ/L (98-107) Carbon Dioxide Level 27MEQ/L (22-30) 27MEQ/L (22-30) Anion Gap 8MEQ/L (5-15) 10MEQ/L (5-15) Blood Urea Nitrogen 8.0MG/DL (7-17) 5.0MG/DL (7-17) Creatinine 0.8MG/DL (0.7-1.2) 0.9MG/DL (0.7-1.2) Glomerular Filtration Rate Calc 78 68 BUN/Creatinine Ratio 10RATIO (6-26) 6RATIO (6-26) Glucose Level 79MG/DL (65-110) 101MG/DL (65-110) Calculated Osmolality 272MOSM/KG (261-280) 274MOSM/KG (261-280) Calcium Level 7.5MG/DL (8.4-10.2) 8.3MG/DL (8.4-10.2) Total Bilirubin 1.40MG/DL (0.20-1.30) 0.90MG/DL (0.20-1.30) Icterus Index < 2 (0-7) < 2 (0-7) Aspartate Amino Transf (AST/SGOT) 652U/L (14-36) 333U/L (14-36) Alanine Aminotransferase (ALT/SGPT) 711U/L (9-52) 710U/L (9-52) Alkaline Phosphatase 140U/L (38-126) 170U/L (38-126) Total Protein 5.3G/DL (6.3-8.2) 6.4G/DL (6.3-8.2) Albumin 2.8G/DL (3.5-5.0) 3.7G/DL (3.5-5.0) Globulin 2.5G/DL (2.4-3.6) 2.7G/DL (2.4-3.6) Albumin/Globulin Ratio 1.1RATIO (1.1-2.2) 1.4RATIO (1.1-2.2) Lipase 220U/L (23-300) Chemistry Specimen Hemolysis < 15 (0-25) < 15 (0-25) Mary Ellen-Lux Virus Interpretation - Radiology [place], [place] [address] Name: DYLON BARONE Unit #: [id number] Signed Page 2 of 2 DIAGNOSTIC IMAGING REPORT Report #: [id number] Dictated By: ARAMIS RON MD 05/27/16 1009 Signed date/time: 05/27/16 1012 Transcribed By: [employer] 05/27/16 1009 cc: RAMOS KING MD [address] [address] [phone] Transcribed By: [employer] 05/27/[address] ABD/PELVIS W/CONTRAST ONLY: Comparison: None Technique: Patient scanned from above the thoracic inlet to below the diaphragms after 100 cc Omni 300 intravenous contrast is used. Dose reduction imaging technology is used with reformatted sagittal and coronal images. Findings: Heart size is within normal limits. Lung bases are clear. Liver is homogeneous in texture and normal in CT appearance. No biliary ductal dilatation noted. The gallbladder has been previously removed. Spleen is unremarkable. Pancreas and both adrenals are unremarkable. Both kidneys excrete the contrast in a similar pattern showing no abnormality. Retroperitoneum is unremarkable. Visualized bowel is unremarkable. Pelvis demonstrates an IUD in place within the uterine cavity. No additional acute pelvic findings were seen. Reformatted imaging shows no acute bony findings in the visualized thoracolumbar spine. Impression: 1. No acute findings currently appreciated. 2. Findings were communicated to ordering ER clinician by the V rad service on a callback basis. . DATE OF EXAM: 05/28/16 TYPE OF EXAM: US LIVER (HEPATIC) REASON FOR EXAM: elevated lipase and liver enzymes, remote cholecystectomy, EXAM: US LIVER (HEPATIC) LOCATION OF DICTATION: [facility] COMPARISON: None available. HISTORY: ITS.REASON: elevated lipase and liver enzymes, remote cholecystectomy, FINDINGS: PANCREAS: Unremarkable. What is able to be seen of the head and body of the pancreas appears unremarkable. The tail of the pancreas is not well visualized and is not able to be evaluated. AORTA/IVC: Unremarkable. No evidence for aneurysm. LIVER: Unremarkable. Normal in echotexture, size, and appearance. No intrahepatic ductal dilatation. No lesions are seen. The main portal vein has normal color Doppler flow and direction.15.3 cm in length. GALLBLADDER: Gallbladder surgically absent. CBD: Unremarkable. Normal in caliber. No intra or extrahepatic ductal dilatation. Normal for age. 4.3 mm. RIGHT KIDNEY: Unremarkable. Normal in echotexture, size, appearance, and color Doppler flow without hydronephrosis. 11.9 x 4.4 x 4.8 cm. COMMENTS: None. IMPRESSION: 1. Status post cholecystectomy without intra or intrahepatic ductal dilatation. 2. Otherwise unremarkable exam. Unremarkable appearance to the liver and pancreas. History of Present Illness Please note that the patient was seen via telemedicine on 05/26/2016 with nursing assistance. Ms. Barone is a 41yo woman with h/o myasthenia gravis, appy, choly in 1999, cla ss 1 obesity now with 2 days of initial nausea, vomiting and diarrhea with epigastric abdominal p ain improved this AM but then worse with PO intake of chicken noodle soup. Pain 8/10 in ED with now 5/10 after morpine and zofran in ED. No CP or ENT symptoms. No SOB. No med changes. No prior pa ncreatitis. 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 No blood in the stool or vomitus. Hospital Course 05/26 Inpatient admission for treatment of pancreatitis with SIRS. NPO for bowel rest. IVF to maintain hydration. MS for pain control. Zofran and Phenergan for nausea control. Monitor lab. SCD. 05/27 Doing fair this evening. Taken some liquids - notes increase dyspepsia and some nausea with intake. Pain decreased. Really no oral drive. Breathing well. Continue IVF for hydration due to decreased oral drive. IV Protonix started for dyspepsia. Diet advanced to clear liquids. May increase as tolerated. [place] added for pain. Repeat LFT this afternoon showing decreased. Lipase normalized this am. Will continue with care. Recheck CMP in am to monitor liver enzymes and electrolytes. Repeat CBC in am due to resolving SIRS. Check Lipase due to pancreatitis. Continue IVF for hydration due to decreased oral drive. IV Protonix started for dyspepsia. Diet advanced to clear liquids. May increase as tolerated. [place] added for pain. Repeat LFT this afternoon showing decreased. Lipase normalized this am. Will continue with care. Recheck CMP in am to monitor liver enzymes and electrolytes. Repeat CBC in am due to resolving SIRS. Check Lipase due to pancreatitis. Case discussed with CM and nursing. 05/28/2016 Impression Mild acute Pancreatitis-resolved Sirs-resolved Transaminitis-continued elevation, uncertain etiology. Possibly secondary to a v iral gastroenteritis illness. Possible viral gastroenteritis Abdominal pain-improving Myasthenia gravis-stable Mild hypokalemia- Dehydration-resolved Mild leukopenia Mild thrombocytopenia Plan Advance diet as tolerated. Discontinue IV fluids. DC IV Protonix and try oral Pe pcid. The patient would like to try eating 1 or 2 bananas for her hypokalemia which is borderline low. Discontinue Tylenol. Try caffeinated beverage to see if this will help with head ache. Low-dose oxycodone orally if needed for pain. Check CMV, Mary Ellen-Lux virus, hepatitis panel. Recheck CBC and CMP tomorrow. Possible discharge tomorrow if taking oral well a nd stable off of IV fluids. Questions and concerns of the patient and her were discussed to their ap parent satisfaction. 05/29/2016-Dr. Felix Patient states she's feeling better this afternoon. She did have some diarrhea and vomiting last night. She's been able to eat some bland food and drink fluids well today. She states her urine is slightly up. She did have some sharp right upper quadrant abdominal pain last ni ght, but none now. She has not required any IV medications or IV fluids. Lab today shows AST is rm n to 333 from 652. ALT is stable at 710. Alkaline phosphatase is 170. Bilirubin is 0.9. Overall dillon er enzymes are fairly stable to improved. On exam the patient is alert and in no acute distress. Chest clear to auscultati on. Cardio vascular reveals a regular rate and rhythm. Abdomen is soft and nontender with good bowel sounds. Extremities are free of edema. Skin is warm and dry and without rashes. The patient, her and I discussed the option of either staying overnight and see how she does and repeat lab tomorrow, versus going home and continuing with bland diet and en couraging fluid intake. She can take Zofran as needed for nausea. She decided she would like to try and go home. I think that is very reasonable. She her were told that if she develops wo rsening vomiting, uncontrolled or frequent diarrhea, increased abdominal pain, fevers, or in gener al just feeling worse she should return to the emergency room. She will need follow-up with her primary care provi mario next week regarding lab work that is pending. She should also have lab work done at that time including a CBC and comp principal metabolic profile. Problems: (1) Acute pancreatitis Status: Resolved Assessment & Plan: Acute pancreatitis uncertain etiology but likely viral with no etoh and h/o choly. Med review with lipid profile, full admit, supportive care with NPO exce pt meds with sips (2) SIRS without acute organ dysfunction due to non-infectious process Status: Resolved Assessment & Plan: Present on admission. SIRS criteria - Leukocytosis, tachycardia. (3) Transaminitis Status: Acute Assessment & Plan: avoid tylenol, ?etiology with B mildlly elevated byt albumin normal. Repeat in the AM after hydration. Consider viral hep panel if not improved, but likely ac utely due to pancrea tic process. (4) Nausea Status: Acute (5) Abdominal pain Status: Acute (6) Myasthenia gravis Status: Chronic Assessment & Plan: Stable (7) Obesity (BMI 30.0-34.9) Status: Chronic DVT Prophylaxis: SCD'S Code Status Full Code Home Meds Active Scripts Ondansetron (Ondansetron Odt) 4 Mg Tab.rapdis, 4 MG PO Q4H Y for NAUSEA &/OR VOMITING, #10 Prov:TATIANA FELIX MD 05/29/16 Famotidine (Famotidine) 20 Mg Tablet, 20 MG PO BID, #10 TAB Prov:TATIANA FELIX MD 05/29/16 Reported Medications Pyridostigmine [place] (Mestinon) 60 Mg Tablet, 60 MG PO 5 TIMES A DAY 09/19/09 Discontinued Reported Medications Acetaminophen (Tylenol) 325 Mg Tablet, 500 MG PO QID 05/26/16 Face to Face Encounter I met with patient on the day of dismissal and discussed follow up appointments, medications, and safety plan. Discharge Disposition Dismiss to home in stable condition Copies To 1: MT SERVIN APRN, STEPHANIE L MD May 29, 2016 16:33 Procedures No known history of procedures. Encounters Encounter Location Arrival/Admit Date Discharge/Depart Date Attending Provider Discharged Inpatient [facility] 05/26/16 8:32pm 05/29/16 4:56pm RAMOS KING MD
--- OUTSIDE RECORDS SUMMARY | 2019-09-09 19:25 | XMS REPORT | Continuity of Care Document ---
Author Author [facility] Organization [facility] Address [address] [place] [phone] Phone Care Team Providers Care Churn Driller Name Role Phone Raul Pringle Attphys Raul Pringle Rndphys Dwayne Fowler PCP Tera Moran Attphys Tera Delacruz Rndphys Allergies, Adverse Reactions, Alerts Allergen Type Severity Reaction Last Updated Verified Status Penicillins Allergy Unknown Yes Active tetracycline Adverse Reaction Mild NAUSEA Yes Active Medications Medication Status Dose Units Route Sig Qty Days Start Date End Date Instructions Pyridostigmine [place] Active 60 MG Oral 5 TIMES A [...] 2018 9:43am 15.0 MG/DL 7-17 Main Lab, [address] [place] [address] Lactate Dehydrogenase October 11, 2018 9:43am 389 U/L 31 3-618 Test performed at: [facility], [address] [place] [address]. Boarding Kennel Or Cattery Operator Ro Granados MD. CLIA# [id number]. Main Lab, [address] [place] [address] Health Concerns No known health concerns documented Chief Complaint and Reason for Visit Chief Complaint Re-ck meds Mario Alberto Knee Encounters Encounter Location(s) Arrival/Admit Date Discharge/Depart Date Provider(s) Departed Physician/Provider Office Visit Giovanny garcía [facility] October 11, 2018 9:10am October 11, 2018 9:43am Sabas Pringle MD Departed Physician/Provider Office Visit Giovanny garcía [facility] November [...] Information available Insurance Providers Guarantor Shania García [facility] Address [address] [place] [address] Contact Info. Home Phone: Payer Policy Id Coverage Id Subscriber's Name Subscriber Id Effect phong Date Expiration Date [facility] [id number] Self Pay Self N/A Plan of Treatment [...]
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
[2019-09-09 19:42] LABS: HEMOGLOBIN 13.9 G/DL (11.5-16.0); MEAN PLATELET VOLUME 12.5 FL (7.4-10.4); RED CELL DISTRIBUTION WIDTH 13.2 % (10.0-14.5)
[2019-09-09 19:49] LABS: INR 0.9 (0.8-1.4); PROTHROMBIN TIME PATIENT 12.5 SEC (12.2-14.7)
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
[2019-09-09 19:57] LABS: ALANINE AMINOTRANSFERASE 22 U/L (0-55); ALBUMIN 4.3 GM/DL (3.2-4.5); ALKALINE PHOSPHATASE 53 U/L (40-136); BILIRUBIN,DIRECT 0.1 MG/DL (0.0-0.3); BILIRUBIN,INDIRECT 0.2 MG/DL; BILIRUBIN,TOTAL 0.3 MG/DL (0.1-1.0); BUN/CREATININE RATIO 11; CARBON DIOXIDE 22 MMOL/L (21-32); CHLORIDE 109 MMOL/L (98-107); CHOLESTEROL 169 MG/DL (< 200); GFR ESTIMATED 53; GLUCOSE 100 MG/DL (70-105); HDL CHOLESTEROL 51 MG/DL (40-60); POTASSIUM 3.6 MMOL/L (3.6-5.0); SODIUM 144 MMOL/L (135-145); TRIGLYCERIDES 237 MG/DL (<150); VLDL CHOLESTEROL 47 MG/DL (5-40)
[2019-09-09 20:18] LABS: BILIRUBIN,URINE NEGATIVE (NEGATIVE); CLARITY,URINE CLEAR; COLOR,URINE YELLOW; GLUCOSE, URINE (UA) NEGATIVE (NEGATIVE); KETONES,URINE TRACE (NEGATIVE); LEUKOCYTE ESTERASE ,URINE NEGATIVE (NEGATIVE); NITRITE,URINE NEGATIVE (NEGATIVE); PH,URINE 6.5 (5-9); PROTEIN,URINE NEGATIVE (NEGATIVE)
[2019-09-09 20:24] LABS: BACTERIA,URINE NEGATIVE /HPF; RBC,URINE RARE /HPF; WBC,URINE RARE /HPF
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
[2019-09-09] MEDS ORDERED: RX-NAPROXEN (NAPROSYN) 250 MG TAB PPK#4 PO STA (21:24)
[2019-09-09] MEDS ORDERED: RX-CYCLOBENZAPRINE 10 MG (FLEXERIL) TAB PPK#3 PO STA (21:24)
[2019-09-09] MEDS ORDERED: CYCL10TA9 PO (21:30)
[2019-09-09] MEDS ORDERED: NAPR500T8 PO (21:30)
[2019-09-09 21:46] VITALS: BP 112/65
== END 2019-09-09 21:46 | disposition home or self-care (01) ==
LOC: ER 19:20
DX: S16.1XXA Strain of muscle, fascia and tendon at neck level, initial encounter (principal); S49.92XA Unspecified injury of left shoulder and upper arm, initial encounter; S79.911A Unspecified injury of right hip, initial encounter; S99.911A Unspecified injury of right ankle, initial encounter; S99.922A Unspecified injury of left foot, initial encounter; S09.90XA Unspecified injury of head, initial encounter; S00.83XA Contusion of other part of head, initial encounter; G70.00 Myasthenia gravis without (acute) exacerbation; V53.6XXA Passenger in pick-up truck or van injured in collision with car, pick-up truck or van in traffic accident, initial encounter; Z90.49 Acquired absence of other specified parts of digestive tract
CPT/HCPCS: 70450; 70486; 71045; 71260; 72125; 72128; 72131; 73030; 73502; 73610; 73630; 74177; 80053; 80061; 80076; 81000; 83735; 83874; 84484; 84703; 85027; 85610; 85730; 99283; G0480; 36415; 80320